=== PATIENT | female | born 1985 | race Caucasian/White ===

== ENCOUNTER 2018-01-17 07:10 | Inpatient (IN) | payer MEDICAID ==
[2018-01-17 07:53] LABS: ADD MAN DIFF? NO
[2018-01-17 07:57] LABS: WHITE BLOOD COUNT 11.6 10^3/ul (4.8-10.8)
[2018-01-17 07:57] LABS: BASOPHILS % 0.2 % (0.0-2.0); EOSINOPHILS # 0.1 10^3/ul (0.0-0.5); EOSINOPHILS % 0.5 % (0.0-7.0); HEMATOCRIT 34.8 % (37.0-47.0); HEMOGLOBIN 11.6 g/dl (12.0-16.0); LYMPHOCYTES # 3.9 10^3/ul (0.8-2.9); MEAN CORPUSCULAR HEMOGLOBIN 29.1 pg (29.0-33.0); MEAN CORPUSCULAR HGB CONC 33.3 g/dl (32.0-37.0); MEAN CORPUSCULAR VOLUME 87.4 fl (82.0-101.0); MEAN PLATELET VOLUME 11.4 fl (7.4-10.4); MONOCYTE # 0.7 10^3/ul (0.3-0.9); NEUTROPHIL # 6.8 10^3/ul (1.6-7.5); NEUTROPHILS % 58.7 % (39.0-77.0); PLATELET COUNT 267 10^3/UL (140-415); RED BLOOD COUNT 3.98 10^6/ul (4.20-5.40); RED CELL DISTRIBUTION WIDTH 14.4 % (11.5-14.5)
[2018-01-17] MEDS ORDERED: LIDOCAINE 1% (MPF) 30 ML INJ INJ (08:00)
[2018-01-17] MEDS ORDERED: OXYTOCIN 30 UNITS/LR 500 ML IV ×2 (08:00→10:30)
[2018-01-17] MEDS ORDERED: BUTORPHANOL 2 MG INJ IV (08:00)
[2018-01-17] MEDS ORDERED: CARBOPROST 250 MCG INJ IM ×2 (08:00→10:30)
[2018-01-17] MEDS ORDERED: IBUPROFEN 600 MG TAB PO (08:00)
[2018-01-17] MEDS ORDERED: METHYLERGONOVINE 0.2 MG INJ IM ×2 (08:00→10:30)
[2018-01-17] MEDS ORDERED: MISOPROSTOL 200 MCG TAB PR ×2 (08:00→10:30)
[2018-01-17] MEDS: LACTATED RINGER'S 1,000 ML IV* ×3 (08:04→19:20)
[2018-01-17] MEDS: AMPICILLIN 1 GM/NS (PMX) 50 ML IV (08:05)
[2018-01-17] MEDS: AMPICILLIN 2 GM/NS (PMX) 100 ML IV (08:05)
[2018-01-17] MEDS: OXYTOCIN 30 UNITS/LR 500 ML IV ×2 (08:05→08:06)
[2018-01-17 08:55] LABS: HEPATITIS B SURFACE ANTIGEN NEGATIVE (NEGATIVE)
[2018-01-17] MEDS ORDERED: ACETAMINOPHEN 325 MG TAB PO (10:30)
[2018-01-17] MEDS ORDERED: DIBUCAINE 1% 30 GM OINT PR (10:30)
[2018-01-17] MEDS ORDERED: HYDROCODONE/APAP (5/325) TAB PO (10:30)
[2018-01-17 11:24] LABS: INR 0.92; PROTIME 12.4 Sec (11.9-14.9)
[2018-01-17 11:25] LABS: PARTIAL THROMBOPLASTIN TIME 25.2 Sec (23.0-35.0)
[2018-01-17] MEDS: IBUPROFEN 600 MG TAB PO ×3 (12:00→23:43)
[2018-01-17] MEDS: BENZOCAINE 20% 56 ML SPRAY TOP (12:19)
[2018-01-17] MEDS: WITCH HAZEL/GLYCERIN PAD PR (12:19)
[2018-01-17] MEDS: LANOLIN 7 GM TUBE TOP (12:20)
[2018-01-17 16:16] LABS: RAPID PLASMA REAGIN NONREACTIVE (NR)
[2018-01-17] MEDS: SENNA/DOCUSATE NA (8.6MG/50MG) TAB PO (21:19)
[2018-01-18] MEDS: IBUPROFEN 600 MG TAB PO ×4 (05:49→23:41)
[2018-01-18 08:34] LABS: ADD MAN DIFF? NO
[2018-01-18 08:42] LABS: BASOPHILS % 0.3 % (0.0-2.0); EOSINOPHILS # 0.1 10^3/ul (0.0-0.5); EOSINOPHILS % 0.8 % (0.0-7.0); HEMATOCRIT 31.9 % (37.0-47.0); HEMOGLOBIN 10.5 g/dl (12.0-16.0); LYMPHOCYTES # 2.7 10^3/ul (0.8-2.9); LYMPHOCYTES % 23.4 % (15.0-51.0); MEAN CORPUSCULAR HEMOGLOBIN 29.2 pg (29.0-33.0); MEAN CORPUSCULAR HGB CONC 32.9 g/dl (32.0-37.0); MEAN CORPUSCULAR VOLUME 88.6 fl (82.0-101.0); MEAN PLATELET VOLUME 11.5 fl (7.4-10.4); MONOCYTE # 0.7 10^3/ul (0.3-0.9); MONOCYTES % 6.2 % (0.0-11.0); NEUTROPHILS % 68.6 % (39.0-77.0); PLATELET COUNT 229 10^3/UL (140-415); RED CELL DISTRIBUTION WIDTH 14.5 % (11.5-14.5)
[2018-01-18 08:42] LABS: WHITE BLOOD COUNT 11.7 10^3/ul (4.8-10.8)
[2018-01-18] MEDS: SENNA/DOCUSATE NA (8.6MG/50MG) TAB PO ×2 (09:13→21:01)
[2018-01-19] MEDS: IBUPROFEN 600 MG TAB PO ×2 (05:51→12:38)
[2018-01-19] MEDS: SENNA/DOCUSATE NA (8.6MG/50MG) TAB PO (08:50)
[2018-01-19] MEDS: DIPHTH/TET/ACEL PERTUSS (ADULT) 0.5 ML VIAL IM* (11:27)
== END 2018-01-19 15:11 | disposition home or self-care (01) | DRG 807 ==
LOC: OBT 07:10 → L-D 07:10 → OBT 07:20 → L-D 07:20 → PP1 09:48
PROVIDERS: Obstetrics & Gynecology
PROC: 10E0XZZ Delivery of Products of Conception, External Approach (ICD-10-PCS; principal; 2018-01-17)
PROC: 0HQ9XZZ Repair Perineum Skin, External Approach (ICD-10-PCS; 2018-01-17)
DX: O70.9 Perineal laceration during delivery, unspecified (principal); Z37.0 Single live birth; Z3A.38 38 weeks gestation of pregnancy
CPT/HCPCS: 85025; 85610; 85730; 86592; 86850; 86900; 86901; 87340; 90686; 90715